=== PATIENT | female | born 1935 | race Caucasian/White ===

== ENCOUNTER 2018-03-22 23:19 | Emergency (ER) | payer BC, OTHER ==
[2018-03-22 23:26] VITALS: BP 166/81
--- NOTE | 2018-03-23 00:41 | EDPHY ---
H & P Stated Complaint: fells like something is stuck in throat Time Seen by Provider: 03/22/18 23:32 HPI/ROS: Chief Complaint: Feels like something stuck in esophagus HPI: 82-year-old woman presenting with the sensation that she has a foreign body stuck in esophagus. Patient states that she was eating brisk earlier and got the sensation that been him stuck. She tried drinking wires able to pass anything. She has not tried drinking anything since. Symptoms began about 4 hr ago. No nausea or vomiting. She has had upper respiratory and bronchitis symptoms recently. She takes effort opium nasal spray for the symptoms. She has had a similar episode to this in the past when she had a bronchitis type symptoms. She has never had and endoscopy performed. No fevers or chills. No abdominal pain. No shortness of breath. ROS: 10 systems were reviewed and were negative except those elements noted in the HPI. Social History: No smoking, no alcohol, no recreational drug use Family History: non-contributory Physical Exam: Gen: Awake, Alert, No Distress HEENT: Nose: no rhinorrhea Eyes: PERRLA, EOMI Mouth: Moist mucosa Neck: Supple, no JVD Chest: nontender, mild diffuse expiratory wheezing Heart: S1, S2 normal, no murmur Abd: Soft, non-tender, no guarding Back: no CVA tenderness, no midline tenderness Ext: no edema, non-tender Skin: no rash Neuro: CN II-XII intact, Sensation grossly intact, Strength 5/5 in bilateral upper and lower extremities - Personal History Current Tetanus/Diphtheria Vaccine: No Current Tetanus Diphtheria and Acellular Pertussis (TDAP): No - Medical/Surgical History Hx Asthma: No Hx Chronic Respiratory Disease: No Hx Diabetes: Yes Hx Cardiac Disease: No Hx Renal Disease: No Hx Cirrhosis: No Hx Alcoholism: No Hx HIV/AIDS: No Hx Splenectomy or Spleen Trauma: No Other PMH: back surgery, DM - Social History Smoking Status: Never smoked Constitutional: Initial Vital Signs Temperature (C) 36.5 C 03/22/18 23:20 Heart Rate 82 03/22/18 23:20 Respiratory Rate 16 03/22/18 23:20 Blood Pressure 166/81 H 03/22/18 23:20 O2 Sat (%) 93 03/22/18 23:20 O2 Delivery Mode Room Air Allergies/Adverse Reactions: No Known Allergies Allergy (Verified 03/22/18 23:25) Home Medications: Medication Instructions Recorded Aspirin [Aspir 81] 81 mg PO 09/25/11 Atorvastatin Calcium [Lipitor 40 40 mg PO DAILY 09/25/11 mg (RX)] Ferrous Sulfate [Ferrous Sulf 325 325 mg PO DAILY 09/25/11 MG (OTC)] Lisinopril/Hctz 20/12.5MG 1 ea PO DAILY 09/25/11 [Zestoretic/Prinzide 20/12.5MG (RX)] Angelica-3 Fatty Acids/Fish Oil [Fish 1 each PO 09/25/11 Oil 1,000 mg Capsule] Vits A,C,E/Lutein/Minerals 1 each PO 09/25/11 [Ocuvite Tablet] metFORMIN HCL [Glucophage 500 mg 500 mg PO BIDMEAL 09/25/11 (RX)] Ipratropium 0.03% Nasal 03/22/18 Medical Decision Making ED Course/Re-evaluation: 82-year-old with sensation of an esophageal foreign body. I have given her a Pepsi to drink and she tolerated that without any difficulty whatsoever. She does have a dry nonproductive cough with some wheezing consistent with bronchitis. Will give her albuterol inhaler with a spacer. I have encouraged her follow up with Gastroenterology for endoscopy to evaluate for possible esophageal stricture. No evidence of obstruction at this time. Departure - Departure Disposition: Home, Routine, Self-Care Clinical Impression: Bronchitis Condition: Good Instructions: Acute Bronchitis (ED), Wheezing (ED), Albuterol (By breathing) Additional Instructions: You may use albuterol inhaler with a spacer 1-2 puffs every 4 hr as needed for cough or wheeze. Follow up with primary care physician in 1-2 days for further evaluation. I recommend follow-up with a cro to evaluate for possible scarring of your esophagus. Referrals: ARISTEO CHAND MD [Primary Care Provider] - As per Instructions
[2018-03-23] MEDS ORDERED: ALBUTEROL INH PREPACK MDI TAKEHOME ONE (00:43)
== END 2018-03-23 01:19 | disposition home or self-care (01) ==
DX: J40 Bronchitis, not specified as acute or chronic (principal)